=== PATIENT | female | born 1965 | race African-American/Black ===

== ENCOUNTER 2017-06-11 13:56 | Inpatient (IN) | payer OTHER ==
--- NOTE | 2017-06-11 14:29 | PDOC ---
History of Present Illness <Connor Flowers - Last Filed: 06/11/17 19:59> - General History Source: Patient Exam Limitations: No Limitations - History of Present Illness Initial Comments: This is a 51 YOF with h/o cerebellar CVA, HTN, HLD, seizures, asthma, nephrotic syndrome, MDD, PTSD, and MRDD who presents BIBA from her doctor's office c/o feeling that there is a lump in her chest, high blood pressure, and seizure. She states that her doctor witnessed her have a seizure in their office and also found her blood pressure to be high, so they called for an ambulance to take her to the ED. The patient notes having vomited 3-4 times today and also states that she has abdominal pain. She denies any current chest discomfort, stating that the sensation has since resolved. She notes having felt like this in the past during times of high stress. She additionally discloses that her stepmother two weeks ago and she recently returned to town from visiting her family. She also has broken up with her in the past few days. She has generally been extremely stressed with this, and is also stressed about the recovery process for her double knee replacement in February. Per EMS, the patient was picked up from her doctor's office where staff had called 911 because the patient complained of chest pain after being asked to leave the office for yelling and acting inappropriately. They report that her blood pressure was 168/70 and HR was 102 en route. She was initially very anxious but calmed down with conversation. <Carlie Barraza - Last Filed: 06/13/17 14:24> - General Chief Complaint: Psychiatric Stated Complaint: PANIC ATTACK Time Seen by Provider: 06/11/17 14:00 Past History <Connor Flowers - Last Filed: 06/11/17 19:59> <Carlie Barraza - Last Filed: 06/13/17 14:24> - Past Medical History Allergies/Adverse Reactions: Allergies Allergy/AdvReac Type Severity Reaction Status Date / Time No Known Allergies Allergy Verified 06/11/17 14:13 Home Medications: Ambulatory Orders Advair 500Mcg/50Mcg - 1 inh As needed PRN 06/12/17 Atorvastatin Calcium 40 mg PO DAILY 06/12/17 Clopidogrel Bisulfate [Plavix] 75 mg PO DAILY 06/12/17 Diphenhydramine HCl [Benadryl -] 25 mg PO DAILY 06/12/17 Hydrochlorothiazide 12.5 mg PO DAILY 06/12/17 Losartan Potassium 50 mg PO DAILY 06/12/17 Diltiazem HCl [Diltiazem 24Hr ER] 120 mg PO DAILY 06/13/17 Fluoxetine HCl 40 mg PO DAILY 06/13/17 Metoprolol Tartrate 25 mg PO 06/13/17 Review of Systems - Review of Systems Able to Perform ROS?: Yes Constitutional: No: Chills, Fever, Unexplained wgt Loss HEENTM: No: Nose Congestion, Throat Pain Respiratory: Yes: Shortness of Breath (chronic). No: Cough Cardiac (ROS): Yes: Chest Pain (resolved). No: Palpitations ABD/GI: Yes: Nausea, Vomiting. No: Constipated, Diarrhea : No: Burning, Dysuria Musculoskeletal: No: Back Pain, Neck Pain Integumentary: No: Bruising, Rash Neurological: No: Headache, Numbness, Tingling, Weakness, Dizziness Psychiatric: Yes: Anxiety, Depression, Frequent Crying, Stressors Endocrine: No: Unexplained Weight Gain, Unexplained Weight Loss <Barraza,Mary - Last Filed: 06/13/17 14:24> *Physical Exam - Vital Signs Last Vital Signs Temp Pulse Resp BP Pulse Ox 97.5 F L 60 20 130/86 100 06/11/17 14:13 06/11/17 16:39 06/11/17 16:39 06/11/17 16:39 06/11/17 16:39 <Connor Flowers - Last Filed: 06/11/17 19:59> - Physical Exam General Appearance: Yes: Nourished, Appropriately Dressed, Moderate Distress, Other (appears very anxious, tearful, often inappropriate answering, conversive but very tangential and very loose associations, tearful) HEENT: positive: EOMI, MELBA, Normal Voice, Hearing Grossly Normal. negative: Scleral Icterus (R), Scleral Icterus (L), Nasal Congestion Neck: positive: Trachea midline, Supple. negative: Tender, Rigid Respiratory/Chest: positive: Lungs Clear, Normal Breath Sounds. negative: Chest Tender, Respiratory Distress, Crackles, Rhonchi, Stridor, Wheezing Cardiovascular: positive: Regular Rhythm, Regular Rate. negative: Murmur Gastrointestinal/Abdominal: positive: Normal Bowel Sounds, Soft, Protuberent ( slightly). negative: Tender, Organomegaly, Pulsatile Mass, Guarding Musculoskeletal: positive: Normal Inspection. negative: Decreased Range of Motion, Vertebral Tenderness Extremity: positive: Normal Capillary Refill, Normal Inspection, Normal Range of Motion. negative: Tender, Cyanosis Integumentary: positive: Normal Color, Dry, Warm, Other (skin to bilateral upper arms and upper back with chronic small scars and occasional excoriations of varied ages). negative: Erythema, Rash, Bruising Neurologic: positive: aircraft instrument repairer II-XII NML intact, Fully Oriented, Alert, Normal Mood/ Affect, Normal Response, Motor Strength 5/5 <Carlie Barraza - Last Filed: 06/13/17 14:24> ED Treatment Course - LABORATORY CBC & Chemistry Diagram: 06/11/17 15:31 06/11/17 15:31 - ADDITIONAL ORDERS Additional order review: Laboratory Results 06/11/17 06/11/17 06/11/17 15:31 15:31 15:31 PT with INR INR Sodium Potassium Chloride Carbon Dioxide Anion Gap BUN Creatinine Creat Clearance w eGFR Random Glucose Calcium Phosphorus Cancelled Magnesium Total Bilirubin AST ALT Alkaline Phosphatase Ammonia 65.09 H Creatine Kinase Creatine Kinase Index CK-MB (CK-2) Troponin I Total Protein Albumin Salicylates < 4.0 Acetaminophen < 2.0 L Alcohol, Quantitative 334.5 H* 06/11/17 06/11/17 15:31 15:31 PT with INR 11.90 H INR 1.05 Sodium 142 Potassium 4.6 Chloride 108 H Carbon Dioxide 26 Anion Gap 8 BUN 17 Creatinine 0.8 Creat Clearance w eGFR > 60 Random Glucose 106 Calcium 8.7 Phosphorus 4.3 Magnesium 2.6 H Total Bilirubin 0.1 L AST 32 ALT 32 Alkaline Phosphatase 86 Ammonia Creatine Kinase 151 Creatine Kinase Index 0.6 CK-MB (CK-2) < 1.000 Troponin I < 0.02 Total Protein 8.0 Albumin 4.0 Salicylates Acetaminophen Alcohol, Quantitative 06/11/17 15:31 RBC 4.73 MCV 90.9 MCHC 32.6 RDW 16.7 H MPV 8.2 Neutrophils % No Result Required. Lymphocytes % No Result Required. - Medications Given in the ED: ED Medications Discontinued Medications Generic Name Dose Route Start Last Admin Trade Name Freq PRN Reason Stop Dose Admin Aspirin 162 mg 06/11/17 14:37 06/11/17 15:15 Asa - PO 06/11/17 14:38 162 mg ONCE ONE Administration Diphenhydramine HCl 25 mg 06/11/17 14:44 06/11/17 15:15 Benadryl Injection - IVPUSH 06/11/17 14:45 25 mg ONCE ONE Administration Haloperidol 5 mg 06/11/17 14:44 06/11/17 15:15 Haldol Injection (Fast Acting) - IM 06/11/17 14:45 5 mg ONCE ONE Administration Lorazepam 1 mg 06/11/17 14:36 06/11/17 15:15 Ativan - PO 06/11/17 14:37 1 mg ONCE ONE Administration <Connor Flwoers - Last Filed: 06/11/17 19:59> - LABORATORY CBC & Chemistry Diagram: 06/12/17 07:00 06/12/17 07:00 <Carlie Barraza - Last Filed: 06/13/17 14:24> Medical Decision Making - Medical Decision Making 51 YOF with h/o depression, PTSD, MRDD, cerebellar CVA, seizure d/o, HTN, HLD, asthma. Presents with anxiety, belligerent in doctor's office, states chest discomfort and had seizure in office. On exam her VS wnl, patient appears very anxious and is tearful, very tangential conversation. DDX IBNLT genet, anxiety/panic disorder, ACS, PNA, PE, etc. Ordered is CBCD, CMP, MG, Phos, urine tox, UA cx, serum salicylates/ acetaminophen/EtOH, EKG, CXR, CTH. Medications ordered are 1 Ativan IV, 5 Haldol IM, 25 Benadryl IV. Cannot find any anti-epileptic medications on her paper records or [facility] records. 06/11/17 16:[address] Florez who agrees with the medications given to the patient so far. He will kindly see the patient this evening when he comes by [facility]. Just after this phone conversation, the patient's ammonia results >65. 06/11/17 16:[address] Efe Gannon who is the patient's orthopedist. States that while in his office she had what appeared to be a panic attack. She was yelling, having difficulty walking, wobbly on her feet, belligerent and disturbing clinic. Patient's care signed out to oncoming team at the end of my shift awaiting psych consult and likely admission. <Carlie Barraza - Last Filed: 06/13/17 14:24> *DC/Admit/Observation/Transfer - Discharge Dispostion Admit: Yes <Connor Flowers - Last Filed: 06/11/17 19:59> <Carlie Barraza - Last Filed: 06/13/17 14:24> Diagnosis at time of Disposition: Hyperammonemia Altered mental status Qualifiers: Altered mental status type: delirium Qualified Code(s): R41.0 - Disorientation , unspecified - Discharge Dispostion Condition at time of disposition: Guarded
[2017-06-11] MEDS ORDERED: LORazepam 1 MG TABLET PO ONE (14:36)
[2017-06-11] MEDS ORDERED: ASPIRIN 81 MG CHEWABLE TABLETS PO ONE (14:37)
[2017-06-11] MEDS ORDERED: HALOPERIDOL LACTATE 5 MG/ML IM ONE (14:44)
[2017-06-11 14:46] VITALS: BMI 28.3
[2017-06-11] MEDS ORDERED: HALOPERIDOL LACTATE 5 MG/ML ONE (15:00)
[2017-06-11] MEDS ORDERED: ASPIRIN 81 MG CHEWABLE TABLETS ONE (15:00)
[2017-06-11] MEDS ORDERED: LORazepam 0.5 MG TABLET ONE (15:00)
--- NOTE | 2017-06-11 15:21 | PDOC ---
Attending Attestation - Resident Resident Name: Carlie Barraza - ED Attending Attestation I have performed the following: I have examined & evaluated the patient, The case was reviewed & discussed with the resident, I agree w/resident's findings & plan, Exceptions are as noted - HPI HPI: 06/11/17 15:20 51 year old female with past medical history of stroke, hypertension, hyperlipidemia, seizures, asthma, nephrotic syndrome, depressive disorder, PTSD brought in by EMS for multiple complaints. There was comforting reports and it was reported the patient may have been agitated and patient was directed other office. Outside the office, the patient reported that she had multiple complaints including seizures, chest pain, skin rash, multiple positive review systems. Patient here in the ED is intermittently cooperative and tangential when answering questions. She denies being homicidal or suicidal. She states that she takes her medications and gives us a list though does not remember the names on him. Patient states that she's had multiple months of symptoms including rash diffusely to her body which she has been scratching a since her knee surgery and February. Patient also reports that she need something warm for her skin. States she is having seizures even during our interview she is awake. 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 - Physicial Exam PE: 06/11/17 15:21 GENERAL: Awake, alert HEAD: No signs of trauma EYES: PERRLA, EOMI, sclera anicteric, conjunctiva clear ENT: Auricles normal inspection, hearing grossly normal, nares patent, NECK: Normal ROM, supple, LUNGS: Breath sounds equal, clear to auscultation bilaterally. No wheezes, and no crackles HEART: Regular rate and rhythm, normal S1 and S2, no murmurs, rubs or gallops ABDOMEN: Soft, nontender, normoactive bowel sounds. No guarding, no rebound. No masses EXTREMITIES: Normal range of motion, no edema. No clubbing or cyanosis. No cords, erythema, or tenderness NEUROLOGICAL: Cranial nerves II through XII grossly intact. Normal speech, normal gait SKIN: Warm, Dry, normal turgor, no rashes or lesions noted. PSYCH: agitated, tearful, screaming, crying, tangential - Medical Decision Making 06/11/17 15:20 Vital Signs Temp Pulse Resp BP Pulse Ox 97.5 F L 80 16 168/70 100 06/11/17 14:13 06/11/17 14:13 06/11/17 14:13 06/11/17 14:13 06/11/17 14:13 The patient here is tearful at times and yelling at other times. I suspect that there is psychiatric component to this, but will need to rule out an organic component. we will obtain a medical workup including head CT, labs including toxicological screens, urinalysis. We'll consult psychiatry and likely admit the patient to the hospital for further evaluation. 06/11/17 16:17 Pt was given haldol and ativan and benadryl given her agitated behavior for her safety. However, ECG was obtained once patient was calm and noted her QTC was [address] patient on cardiac telemetry and hold off on antipsychotics 06/11/17 16:45 CBC, BMP 06/11/17 15:31 CMP Phosphorus Cancelled 06/11/17 15:31 Ammonia 65.09 umol/L (11-32) H 06/11/17 15:[address] Barraza had consulted [employer] Gautam Vilchis CMP Sodium 146 mmol/L (136-145) H 06/12/17 07:00 Potassium 4.2 mmol/L (3.5-5.1) 06/12/17 07:00 Chloride 111 mmol/L (98-107) H 06/12/17 07:00 Carbon Dioxide 24 mmol/L (21-32) 06/12/17 07:00 Anion Gap 11 (8-16) 06/12/17 07:00 BUN 19 mg/dL (7-18) H 06/12/17 07:00 Creatinine 0.8 mg/dL (0.55-1.02) 06/12/17 07:00 Creat Clearance w eGFR > 60 (>60) 06/12/17 07:00 Random Glucose 102 mg/dL (74-106) 06/12/17 07:00 Calcium 8.1 mg/dL (8.5-10.1) L 06/12/17 07:00 Phosphorus 3.9 mg/dL (2.5-4.9) 06/12/17 07:00 Magnesium 2.2 mg/dL (1.8-2.4) 06/12/17 07:00 Total Bilirubin 0.2 mg/dL (0.2-1.0) D 06/12/17 07:00 AST 43 U/L (15-37) H D 06/12/17 07:00 ALT 35 U/L (12-78) 06/12/17 07:00 Alkaline Phosphatase 78 U/L (45-117) 06/12/17 07:00 Ammonia 65.09 umol/L (11-32) H 06/11/17 15:31 Creatine Kinase 151 IU/L (26-192) 06/11/17 15:31 Creatine Kinase Index 0.6 % (0.0-5.0) 06/11/17 15:31 CK-MB (CK-2) < 1.000 ng/mL (0.5-3.6) 06/11/17 15:31 Troponin I < 0.02 ng/ml (0.00-0.05) 06/11/17 15:31 Total Protein 7.0 g/dl (6.4-8.2) 06/12/17 07:00 Albumin 3.4 g/dl (3.4-5.0) 06/12/17 07:00 Elevated alcohol level Heart Score/ECG Review #1 ECG reviewed & interpreted by me at: 15:25 06/11/17 16:16 NSR 71, no std/agusto, TWI III, normal intervals, normal axis, QTC 497 msec
[2017-06-11 15:35] LABS: LYMPH # 3.5 (8-40); MCH 29.7 pg (25.7-33.7); MCHC 32.6 g/dl (32.0-36.0); MEAN CELL VOLUME 90.9 fl (80-96); MEAN PLT VOLUME 8.2 fl (7.5-11.1); MONO # 0.4 # (3.8-10.2); NEUT # 1.9 # (42.8-82.8); PLATELET COUNT 286 K/MM3 (134-434); RDW 16.7 % (11.6-15.6); WHITE BLOOD COUNT 5.8 K/mm3 (4.0-10.0)
[2017-06-11 15:51] LABS: INR 1.05 (0.82-1.09); PROTHROMBIN TIME (PATIENT) 11.9 SEC (9.98-11.88)
[2017-06-11 16:06] LABS: ANION GAP 8 (8-16); BILIRUBIN,TOTAL 0.1 mg/dL (0.2-1.0); CALCIUM 8.7 mg/dL (8.5-10.1); CO2 26 mmol/L (21-32); CREATININE 0.8 mg/dL (0.55-1.02); GLUCOSE,RANDOM 106 mg/dL (74-106); PHOSPHOROUS 4.3 mg/dL (2.5-4.9); SGPT/ALT 32 U/L (12-78)
[2017-06-11 16:09] LABS: ALK PHOS 86 U/L (45-117); CPK 151 IU/L (26-192); TROPONIN I < 0.02 ng/ml (0.00-0.05)
[2017-06-11 16:49] LABS: SALICYLATE < 4.0 mg/dl (0.0-30.0)
[2017-06-11 16:51] LABS: ALCOHOL 334.5 mg/dl (0-5)
[2017-06-11 16:52] LABS: MAGNESIUM 2.6 mg/dL (1.8-2.4); SGOT/AST 32 U/L (15-37)
[2017-06-11] MEDS ORDERED: FOLIC ACID INJECTION - 1 MG, THIAMINE HCL 100 MG, MULTIVIT INJECTION ADULT 10 ML in SOD... IVPB ONE (20:55)
[2017-06-11] MEDS ORDERED: LORazepam 2 MG/ML SDV VIAL IVPUSH PRN (20:57)
--- NOTE | 2017-06-11 21:01 | HP ---
CHIEF COMPLAINT: Alcohol intoxication. PCP:Macario Sanchez HISTORY OF PRESENT ILLNESS: Patient refused to speak with me therefore this history taken from ER documentation: 51 YO F with h/o cerebellar CVA, HTN, HLD, seizures, asthma, nephrotic syndrome, MDD, PTSD, and MRDD who presents BIBA from her doctor's office c/o feeling that there is a lump in her chest, high blood pressure, and seizure. She states that her doctor witnessed her have a seizure in their office and also found her blood pressure to be high, so they called for an ambulance to take her to the ED. The patient notes having vomited 3-4 times today and also states that she has abdominal pain. She denies any current chest discomfort, stating that the sensation has since resolved. She notes having felt like this in the past during times of high stress. She additionally discloses that her stepmother two weeks ago and she recently returned to town from visiting her family. She also has broken up with her in the past few days. She has generally been extremely stressed with this, and is also stressed about the recovery process for her double knee replacement in February. ER course was notable for: (1)ETOH 334 (2) 1 Ativan IV, 5 Haldol IM, 25 Benadryl IV. (3)EKG shows NSR with no st or t wave abnormalities.QTC was 497 msec. Recent Travel: none PAST MEDICAL HISTORY: PAST SURGICAL HISTORY: Social History: Smoking: Alcohol: Drugs: Family History: Allergies No Known Allergies Allergy (Verified 06/11/17 14:13) HOME MEDICATIONS: REVIEW OF SYSTEMS unable to obtain as patient refused to speak with me. PHYSICAL EXAMINATION Vital Signs - 24 hr 06/11/17 06/11/17 06/11/17 14:13 14:45 16:39 Temperature 97.5 F L Pulse Rate 80 Pulse Rate [ 60 Apical] Respiratory 16 20 Rate Blood Pressure 168/70 Blood Pressure 130/86 [Left Arm] O2 Sat by Pulse 100 100 100 Oximetry (%) GENERAL: sleeping and aggitated when awoken. HEAD: Normal with no signs of trauma. LUNGS:CTAB, NO wheezing or rhonchi HEART: RRR, [id number] normal ABDOMEN: soft, nt, nd, BS nomal LOWER EXTREMITIES: 2+ pulses, warm, well-perfused. No calf tenderness. No peripheral edema. PSYCHIATRIC:sleeping and aggitated upon wakening. Laboratory Results - last 24 hr 06/11/17 06/11/17 06/11/17 15:31 15:31 15:31 WBC 5.8 RBC 4.73 Hgb 14.0 Hct 43.1 MCV 90.9 MCH 29.7 MCHC 32.6 RDW 16.7 H Plt Count 286 MPV 8.2 Neutrophils % No Result Required. Lymphocytes % No Result Required. PT with INR 11.90 H INR 1.05 Sodium 142 Potassium 4.6 Chloride 108 H Carbon Dioxide 26 Anion Gap 8 BUN 17 Creatinine 0.8 Creat Clearance w eGFR > 60 Random Glucose 106 Calcium 8.7 Phosphorus 4.3 Magnesium 2.6 H Total Bilirubin 0.1 L AST 32 ALT 32 Alkaline Phosphatase 86 Ammonia Creatine Kinase 151 Creatine Kinase Index 0.6 CK-MB (CK-2) < 1.000 Troponin I < 0.02 Total Protein 8.0 Albumin 4.0 Salicylates Acetaminophen Alcohol, Quantitative 06/11/17 06/11/17 06/11/17 15:31 15:31 15:31 WBC RBC Hgb Hct MCV MCH MCHC RDW Plt Count MPV Neutrophils % Lymphocytes % PT with INR INR Sodium Potassium Chloride Carbon Dioxide Anion Gap BUN Creatinine Creat Clearance w eGFR Random Glucose Calcium Phosphorus Cancelled Magnesium Total Bilirubin AST ALT Alkaline Phosphatase Ammonia 65.09 H Creatine Kinase Creatine Kinase Index CK-MB (CK-2) Troponin I Total Protein Albumin Salicylates < 4.0 Acetaminophen < 2.0 L Alcohol, Quantitative 334.5 H* ASSESSMENT/PLAN: 51 yo F with h/o cerebellar CVA, HTN, HLD, seizures, asthma, nephrotic syndrome , MDD, PTSD, and MRDD placed on observation for acute alcohol intoxication. Problem List - Problem (1) Acute alcohol intoxication Assessment/Plan: Will place on observation for acute intoxication. * Will monitor for signs of withdrawal * IVF with Banana Bag x1 and then NS * Mulivatimin PO daily * Neuro checks Q4H to assess CIWA * check Mag and PHOs. * repeat AM labs. (2) Altered mental status (3) Hyperammonemia Assessment/Plan: IVF and repeat ammonia tomorrow. Visit type - Emergency Visit Emergency Visit: Yes ED Registration Date: 06/11/17 Care time: The patient presented to the Emergency Department on the above date and was hospitalized for further evaluation of their emergent condition. - New Patient This patient is new to me today: Yes Date on this admission: 06/12/17 - Critical Care Critical Care patient: No
[2017-06-11 23:32] LABS: TOTAL CELLS COUNTED 100
[2017-06-11 23:33] LABS: PLATELET ESTIMATE ADEQUATE
--- NOTE | 2017-06-12 01:42 | PN ---
Teaching Attending Note Name of Resident: Ivan Osullivan ATTENDING PHYSICIAN STATEMENT I saw and evaluated the patient. I reviewed the resident's note and discussed the case with the resident. I agree with the resident's findings and plan as documented. SUBJECTIVE: OBJECTIVE: ASSESSMENT AND PLAN: patient admitted for acute alcohol intoxication she stated she has no history of any acute alcohol withdrawal will place the patient on OBS to be re-evaluated tomorrow for possible d/c
[2017-06-12] MEDS: HEPARIN NA (PORCINE) 5,000 UNITS/ML 1ML VIAL SQ SCH ×3 (06:29→22:09)
[2017-06-12 07:30] LABS: BASO % 1.1 % (0-2.0); EOS % 0.8 % (0-4.5); LYMPH # 2.2 (8-40); MCH 29.4 pg (25.7-33.7); MCHC 32.3 g/dl (32.0-36.0); MEAN CELL VOLUME 91.1 fl (80-96); MONO # 0.4 # (3.8-10.2); NEUT # 1.7 # (42.8-82.8); NEUT % 38.1 % (42.8-82.8); PLATELET COUNT 253 K/MM3 (134-434); RDW 16.9 % (11.6-15.6); WHITE BLOOD COUNT 4.4 K/mm3 (4.0-10.0)
[2017-06-12 08:01] LABS: ALBUMIN 3.4 g/dl (3.4-5.0); ANION GAP 11 (8-16); BILIRUBIN,TOTAL 0.2 mg/dL (0.2-1.0); CALCIUM 8.1 mg/dL (8.5-10.1); CO2 24 mmol/L (21-32); CREATININE 0.8 mg/dL (0.55-1.02); GLUCOSE,RANDOM 102 mg/dL (74-106); MAGNESIUM 2.2 mg/dL (1.8-2.4); PHOSPHOROUS 3.9 mg/dL (2.5-4.9); SGOT/AST 43 U/L (15-37); SGPT/ALT 35 U/L (12-78)
[2017-06-12 08:02] LABS: ALK PHOS 78 U/L (45-117)
[2017-06-12] MEDS ORDERED: LACTULOSE 20 GM/30 ML UDC (FOR ORAL USE ONLY) PO PRN (09:28)
[2017-06-12] MEDS ORDERED: MULTIVITAMINS (DAILY MVI) TABLET (FP) PO SCH (10:00)
[2017-06-12] MEDS ORDERED: THIAMINE HCL 200 MG/2 ML VIAL IVPB SCH (10:00)
[2017-06-12 12:27] LABS: URINE MARIJUANA THC NEGATIVE ng/ml (CUTOFF=50)
[2017-06-12] MEDS ORDERED: ONDANSETRON 4 MG/2 ML VIAL IVPUSH PRN (12:35)
[2017-06-12] MEDS ORDERED: chlordiazePOXIDE HCL 25 MG CAPSULE PO PRN (12:36)
[2017-06-12] MEDS ORDERED: LORazepam 2 MG/ML SDV VIAL IVPUSH PRN (12:38)
[2017-06-12] MEDS: SODIUM CHLORIDE 0.45% 1,000 ML IV SCH (12:40)
[2017-06-12] MEDS: LACTULOSE 20 GM/30 ML UDC (FOR ORAL USE ONLY) PO SCH ×2 (14:56→22:09)
--- NOTE | 2017-06-12 16:17 | PN ---
Physical Exam: SUBJECTIVE: Patient seen and examined Patient is feeling better today. no acute distress, not confused at this time. Feel little weak. Uses cane to walk around. OBJECTIVE: Vital Signs Temperature 98.4 F 06/12/17 18:00 Pulse Rate 73 06/12/17 18:00 Respiratory Rate 20 06/12/17 18:00 Blood Pressure 147/87 06/12/17 18:00 O2 Sat by Pulse Oximetry (%) 98 06/12/17 13:00 GENERAL: The patient is awake, alert, and fully oriented, in no acute distress. HEAD: Normal with no signs of trauma. EYES: PERRL, extraocular movements intact, sclera anicteric, conjunctiva clear. ENT: Ears normal, oropharynx clear without exudates, moist mucous membranes. NECK: Trachea midline, full range of motion, supple. LUNGS: Breath sounds equal, clear to auscultation bilaterally, no wheezes, no crackles, no accessory muscle use. HEART: Regular rate and rhythm, S1, S2 without murmur, rub or gallop. ABDOMEN: Soft, nontender, nondistended, normoactive bowel sounds, no guarding, no rebound, no hepatosplenomegaly, no masses. EXTREMITIES: 2+ pulses, warm, well-perfused, no edema. NEUROLOGICAL: Cranial nerves II through XII grossly intact. Normal speech, gait not observed. PSYCH: Normal mood, normal affect. SKIN: Warm, dry, normal turgor, no rashes or lesions noted Laboratory Results - last 24 hr 06/11/17 06/11/17 06/11/17 15:31 15:31 15:31 WBC RBC Hgb Hct MCV MCH MCHC RDW Plt Count MPV Total Counted 100 Neutrophils % Neutrophils % (Manual) 28.0 L Lymphocytes % Lymphocytes % (Manual) 64.0 H Monocytes % Monocytes % (Manual) 7 Eosinophils % Eosinophils % (Manual) 1.0 Basophils % Platelet Estimate Adequate Sodium 142 Potassium 4.6 Chloride 108 H Carbon Dioxide 26 Anion Gap 8 BUN 17 Creatinine 0.8 Creat Clearance w eGFR > 60 Random Glucose 106 Calcium 8.7 Phosphorus 4.3 Magnesium 2.6 H Total Bilirubin 0.1 L AST 32 ALT 32 Alkaline Phosphatase 86 Creatine Kinase 151 Creatine Kinase Index 0.6 CK-MB (CK-2) < 1.000 Troponin I < 0.02 Total Protein 8.0 Albumin 4.0 Salicylates < 4.0 Opiates Screen Methadone Screen Acetaminophen < 2.0 L Barbiturate Screen Phencyclidine Screen Ur Amphetamines Screen MDMA (Ecstasy) Screen Benzodiazepines Screen Cocaine Screen U Marijuana (THC) Screen Alcohol, Quantitative 334.5 H* 06/12/17 06/12/17 06/12/17 06:39 07:00 07:00 WBC 4.4 RBC 4.54 Hgb 13.4 Hct 41.4 MCV 91.1 MCH 29.4 MCHC 32.3 RDW 16.9 H Plt Count 253 MPV 8.0 Total Counted Neutrophils % 38.1 L Neutrophils % (Manual) Lymphocytes % 50.7 H Lymphocytes % (Manual) Monocytes % 9.3 Monocytes % (Manual) Eosinophils % 0.8 Eosinophils % (Manual) Basophils % 1.1 Platelet Estimate Sodium 146 H Potassium 4.2 Chloride 111 H Carbon Dioxide 24 Anion Gap 11 BUN 19 H Creatinine 0.8 Creat Clearance w eGFR > 60 Random Glucose 102 Calcium 8.1 L Phosphorus 3.9 Magnesium 2.2 Total Bilirubin 0.2 D AST 43 H D ALT 35 Alkaline Phosphatase 78 Creatine Kinase Creatine Kinase Index CK-MB (CK-2) Troponin I Total Protein 7.0 Albumin 3.4 Salicylates Opiates Screen Negative Methadone Screen Negative Acetaminophen Barbiturate Screen Negative Phencyclidine Screen Negative Ur Amphetamines Screen Negative MDMA (Ecstasy) Screen Negative Benzodiazepines Screen Negative Cocaine Screen Negative U Marijuana (THC) Screen Negative Alcohol, Quantitative Active Medications Generic Name Dose Route Start Last Admin Trade Name Freq PRN Reason Stop Dose Admin Chlordiazepoxide HCl 50 mg 06/12/17 17:00 Librium - PO 06/13/17 11:01 [id number] FLORESITA Chlordiazepoxide HCl 25 mg 06/13/17 17:00 Librium - PO 06/14/17 11:01 [id number] FLORESITA Chlordiazepoxide HCl 15 mg 06/14/17 17:00 Librium - PO 06/15/17 11:01 [id number] FLORESITA Chlordiazepoxide HCl 25 mg 06/12/17 12:36 Librium - PO 06/15/17 12:35 Q4H PRN WITHDRAWAL(CONT SUBST) Heparin Sodium (Porcine) 5,000 unit 06/12/17 06:00 06/12/17 14:56 Heparin - SQ 5,000 unit TID FLORESITA Administration Sodium Chloride 1,000 mls @ 150 mls/hr 06/12/17 12:45 06/12/17 12:40 1/2 Normal Saline IV 150 mls/hr ASDIR FLORESITA Administration Lactulose 20 gm 06/12/17 14:00 06/12/17 14:56 Cephulac (Oral Use) PO 20 gm TID FLORESITA Administration Lorazepam 1 mg 06/12/17 12:38 Ativan Injection - IVPUSH Q6H PRN AGITATION Multivitamins/Minerals/Vitamin C 1 tab 06/12/17 10:00 06/12/17 14:56 Tab-A-Vit - PO 1 tab DAILY FLORESITA Administration Ondansetron HCl 4 mg 06/12/17 12:35 06/12/17 13:59 Zofran Injection IVPUSH 06/13/17 12:34 4 mg Q6H PRN Administration NAUSEA AND/OR VOMITING Thiamine HCl 200 mg 06/12/17 10:00 06/12/17 12:41 Vitamin B1 Injection - IVPB 200 mg DAILY FLORESITA Administration ASSESSMENT/PLAN: 51 yo F with h/o cerebellar CVA, HTN, HLD, seizures, asthma, nephrotic syndrome , MDD, PTSD, and MRDD, admitted for acute alcohol intoxication. # Acute alcohol intoxication on Librium protocol , thiamine, folic acid continue # Altered mental status due to elevated ammonia level, will repeat the level in am , added lactulose tid # Hyperammonemia on Lactulose, repeat level in am DVT Px: Lovenox 40mg sq Visit type - Emergency Visit Emergency Visit: Yes ED Registration Date: 06/12/17 Care time: The patient presented to the Emergency Department on the above date and was hospitalized for further evaluation of their emergent condition. - New Patient This patient is new to me today: Yes Date on this admission: 06/12/17 - Critical Care Critical Care patient: No - Discharge Referral Referred to [facility] No
--- NOTE | 2017-06-12 16:27 | EKG ---
Test Reason : Blood Pressure : / mmHG Vent. Rate : 071 BPM Atrial Rate : 071 BPM P-R Int : 182 ms QRS Dur : 090 ms QT Int : 458 ms P-R-T Axes : 039 -19 030 degrees QTc Int : 497 ms NORMAL SINUS RHYTHM WITH SINUS ARRHYTHMIA PROLONGED QT ABNORMAL ECG NO PREVIOUS ECGS AVAILABLE Confirmed by CHARLIE SCOTT MD ([id number]) on 06/12/2017 4:26:54 PM Referred By: Confirmed By:CHARLIE SCOTT MD
--- NOTE | 2017-06-12 16:55 | CONSULT ---
Consult Detox [facility] Reason for Current Admission/Consult: alcohol use disorder Referred by:: Messi Roque MD - History History of Present Illness: 51 yo f admitted w alcohol intoxication and encephalopathy, started on libirum detox now sittting comfortably in bed but poor historian. Reprots strong family hisoty of alcohol use, started drinking age 24 PMHX multiple medical comorbiditie in cluding seizures from stroke, reports partying too much recently - History Source History Provided By: Patient, Medical Record, Caregiver Limitations to Obtaining History: Poor Historian - Alcohol/Substance Use Hx Alcohol Use: Yes - Significant Medical Findings: 51 yo f admitted intoxicated and encephalopathic now completing libirum detox regimen appears comfortable, no distress noted. CIWA Score - CIWA Score Nausea/Vomitin-No Nausea/No Vomiting Muscle Tremors: None Anxiety: 0-No Anxiety, at Ease Agitation: 0-Normal Activity Paroxysmal Sweats: No Perspiration Orientation: 0-Oriented Tacttile Disturbances: 0-None Auditory Disturbances: 0-None Visual Disturbances: 0-None Headache: 0-None Present CIWA-Ar Total Score: 0 Assessment Plan - Diagnosis (1) Alcohol dependence with uncomplicated withdrawal Status: Acute (2) Nicotine dependence Status: Acute (3) Hepatic encephalopathy Status: Acute - Plan Plan: chart reveiwed, imaging reviewed, labs reviewed, patient history taken and examined, case discussed with physician - recommend complete libirum detox, patient may be tansferred to rehab at [facility] in am if she is in agreement and bed is available, appears to have other conflicting appointments. can follow up [facility] IF SHE DOES NTO WANT REHAB. Luda Lutz md [phone] - Medication Detox Regimen/Protocol: Librium
[2017-06-12] MEDS ORDERED: ZOLPIDEM TARTRATE 5 MG TABLET PO PRN (16:59)
[2017-06-12] MEDS ORDERED: ONDANSETRON *ODT* 4 MG TABLET SL PRN (16:59)
[2017-06-12] MEDS ORDERED: PT OWN MED DRAWER 7, Y5N ONE (17:36)
[2017-06-12] MEDS: chlordiazePOXIDE HCL 25 MG CAPSULE PO SCH ×2 (17:39→22:24)
[2017-06-12] MEDS: PRENATAL VITAMINS W/ FOLIC ACID TABLET (FP) PO SCH (22:09)
[2017-06-12] MEDS: THIAMINE HCL 100 MG TABLET (FP) PO SCH (22:09)
[2017-06-12] MEDS ORDERED: PATIENT'S OWN MEDICATION (NON-FORMULARY) (Hydrochlorothiazide [Hydrochlorothiazide] 12.5 M PO SCH (23:20)
[2017-06-13] MEDS: SODIUM CHLORIDE 0.45% 1,000 ML IV SCH ×2 (02:58→09:18)
[2017-06-13] MEDS: LACTULOSE 20 GM/30 ML UDC (FOR ORAL USE ONLY) PO SCH (05:30)
[2017-06-13] MEDS: HEPARIN NA (PORCINE) 5,000 UNITS/ML 1ML VIAL SQ SCH (05:30)
[2017-06-13] MEDS: chlordiazePOXIDE HCL 25 MG CAPSULE PO SCH ×4 (05:30→22:11)
[2017-06-13] MEDS ORDERED: PT OWN MED DRAWER 7, Y5N ONE (09:09)
[2017-06-13] MEDS: PRENATAL VITAMINS W/ FOLIC ACID TABLET (FP) PO SCH (09:17)
[2017-06-13] MEDS ORDERED: PATIENT'S OWN MEDICATION (NON-FORMULARY) (Hydrochlorothiazide [Hydrochlorothiazide] 12.5 M PO SCH (10:00)
[2017-06-13] MEDS ORDERED: HYDROCHLOROTHIAZIDE 12.5 MG CAPSULE (FP) PO SCH (10:00)
--- NOTE | 2017-06-13 11:10 | PN ---
Teaching Attending Note Name of Resident: Roxi Gonsales ATTENDING PHYSICIAN STATEMENT I saw and evaluated the patient. I reviewed the resident's note and discussed the case with the resident. I agree with the resident's findings and plan as documented. SUBJECTIVE: Patient is feeling better today. C/o having diarrhea and that's bc of using Lactulose. OBJECTIVE: Vital Signs Temperature 98.3 F 06/13/17 06:00 Pulse Rate 92 H 06/13/17 10:00 Respiratory Rate 18 06/13/17 10:00 Blood Pressure 136/88 06/13/17 10:00 O2 Sat by Pulse Oximetry (%) 97 06/12/17 21:00 CBCD WBC 4.4 K/mm3 (4.0-10.0) 06/12/17 07:00 RBC 4.54 M/mm3 (3.60-5.2) 06/12/17 07:00 Hgb 13.4 GM/dL (10.7-15.3) 06/12/17 07:00 Hct 41.4 % (32.4-45.2) 06/12/17 07:00 MCV 91.1 fl (80-96) 06/12/17 07:00 MCHC 32.3 g/dl (32.0-36.0) 06/12/17 07:00 RDW 16.9 % (11.6-15.6) H 06/12/17 07:00 Plt Count 253 K/MM3 (134-434) 06/12/17 07:00 MPV 8.0 fl (7.5-11.1) 06/12/17 07:00 CMP Sodium 146 mmol/L (136-145) H 06/12/17 07:00 Potassium 4.2 mmol/L (3.5-5.1) 06/12/17 07:00 Chloride 111 mmol/L (98-107) H 06/12/17 07:00 Carbon Dioxide 24 mmol/L (21-32) 06/12/17 07:00 Anion Gap 11 (8-16) 06/12/17 07:00 BUN 19 mg/dL (7-18) H 06/12/17 07:00 Creatinine 0.8 mg/dL (0.55-1.02) 06/12/17 07:00 Creat Clearance w eGFR > 60 (>60) 06/12/17 07:00 Random Glucose 102 mg/dL (74-106) 06/12/17 07:00 Calcium 8.1 mg/dL (8.5-10.1) L 06/12/17 07:00 Total Bilirubin 0.2 mg/dL (0.2-1.0) D 06/12/17 07:00 AST 43 U/L (15-37) H D 06/12/17 07:00 ALT 35 U/L (12-78) 06/12/17 07:00 Alkaline Phosphatase 78 U/L (45-117) 06/12/17 07:00 Total Protein 7.0 g/dl (6.4-8.2) 06/12/17 07:00 Albumin 3.4 g/dl (3.4-5.0) 06/12/17 07:00 CARDIAC ENZYMES Creatine Kinase 151 IU/L (26-192) 06/11/17 15:31 Troponin I < 0.02 ng/ml (0.00-0.05) 06/11/17 15:31 Home Medications Medication Instructions Recorded Advair 500Mcg/50Mcg - 1 inh As needed PRN 06/12/17 Atorvastatin Calcium 40 mg PO DAILY 06/12/17 Clopidogrel Bisulfate [Plavix] 75 mg PO DAILY 06/12/17 Diphenhydramine HCl [Benadryl -] 25 mg PO DAILY 06/12/17 Famotidine [Pepcid] 20 mg PO DAILY 06/12/17 Hydrochlorothiazide 12.5 mg PO DAILY 06/12/17 Losartan Potassium 50 mg PO DAILY 06/12/17 Metoprolol Tartrate 25 mg PO DAILY 06/12/17 Sertraline HCl [Zoloft -] 50 mg PO DAILY 06/12/17 PE: per resident's note no tremors, cn 2-12 grossly intact. Laboratory Tests 06/11/17 06/13/17 15:31 08:00 Ammonia 65.09 H 44.68 H Current Medications Generic Name Dose Route Start Last Admin Trade Name Freq PRN Reason Stop Dose Admin Chlordiazepoxide HCl 25 mg 06/13/17 17:00 Librium - PO 06/14/17 11:01 [id number] [facility] Chlordiazepoxide HCl 15 mg 06/14/17 17:00 Librium - PO 06/15/17 11:01 [id number] [facility] Chlordiazepoxide HCl 25 mg 06/12/17 12:36 Librium - PO 06/15/17 12:35 Q4H PRN WITHDRAWAL(CONT SUBST) Clopidogrel Bisulfate 75 mg 06/13/17 11:30 Plavix - PO DAILY [facility] Enoxaparin Sodium 40 mg 06/14/17 10:00 Lovenox - SQ DAILY [facility] Dextrose/Sodium Chloride 1,000 mls @ 150 mls/hr 06/13/17 11:15 D5-1/2ns - IV ASDIR [facility] Lactulose 20 gm 06/14/17 10:00 Cephulac (Oral Use) PO DAILY [facility] Lorazepam 1 mg 06/12/17 12:38 Ativan Injection - IVPUSH Q6H PRN AGITATION Losartan Potassium 50 mg 06/14/17 10:00 Cozaar - PO DAILY [facility] Metoprolol Tartrate 25 mg 06/14/17 10:00 Lopressor - PO DAILY [facility] Ondansetron HCl 8 mg 06/12/17 16:59 Zofran Odt - SL Q6H PRN NAUSEA AND/OR VOMITING Multivit/Folic Acid/Iron 1 tab 06/12/17 17:00 06/13/17 09:17 Vitamins (Sjr) - PO 1 tab DAILY [facility] Administration Thiamine HCl 100 mg 06/12/17 22:00 06/12/17 22:09 Vitamin B1 - PO 100 mg HS [facility] Administration Zolpidem Tartrate 10 mg 06/12/17 16:59 Ambien - PO HS PRN INSOMNIA ASSESSMENT AND PLAN: 51 yo F with h/o cerebellar CVA, HTN, HLD, seizures, asthma, nephrotic syndrome , MDD, PTSD, and MRDD, admitted for acute alcohol intoxication. # Acute alcohol intoxication on Librium protocol continue , thiamine, folic acid continue # Altered mental status due to elevated ammonia level 65.09-->44.68 today will repeat the level in am ,reduced lactulose daily now # Hyperammonemia on Lactulose ,will repeat the level in am # Acute hypernatremia will continue IVF with d51/2NS most likely due to diarrhea DVT Px: Lovenox 40mg sq
--- NOTE | 2017-06-13 11:56 | PN ---
Physical Exam: SUBJECTIVE: Patient seen and examined OBJECTIVE: Vital Signs Period Temp Pulse Resp BP Sys/Mckeon Pulse Ox Last 24 Hr 97.8 F-99 F 60-92 18-20 134-154/79-98 97-98 GENERAL: The patient is awake, alert, and fully oriented, in no acute distress. HEAD: Normal with no signs of trauma. EYES: PERRL, extraocular movements intact, sclera anicteric, conjunctiva clear. No ptosis. ENT: Ears normal, nares patent, oropharynx clear without exudates, moist mucous membranes. NECK: Trachea midline, full range of motion, supple. LUNGS: Breath sounds equal, clear to auscultation bilaterally, no wheezes, no crackles, no accessory muscle use. HEART: Regular rate and rhythm, S1, S2 without murmur, rub or gallop. ABDOMEN: Soft, nontender, nondistended, normoactive bowel sounds, no guarding, no rebound, no hepatosplenomegaly, no masses. EXTREMITIES: 2+ pulses, warm, well-perfused, no edema. NEUROLOGICAL: Cranial nerves II through XII grossly intact. Normal speech, gait not observed. PSYCH: Normal mood, normal affect. SKIN: Warm, dry, normal turgor, no rashes or lesions noted CBC, BMP 06/12/17 07:00 06/12/17 07:00 Hepatic Panel Total Bilirubin 0.2 mg/dL (0.2-1.0) D 06/12/17 07:00 AST 43 U/L (15-37) H D 06/12/17 07:00 ALT 35 U/L (12-78) 06/12/17 07:00 Alkaline Phosphatase 78 U/L (45-117) 06/12/17 07:00 Albumin 3.4 g/dl (3.4-5.0) 06/12/17 07:00 06/12/17 06/13/17 06:39 08:00 Ammonia 44.68 H Opiates Screen Negative Methadone Screen Negative Barbiturate Screen Negative Phencyclidine Screen Negative Ur Amphetamines Screen Negative MDMA (Ecstasy) Screen Negative Benzodiazepines Screen Negative Cocaine Screen Negative U Marijuana (THC) Screen Negative Active Medications Atorvastatin Calcium (Lipitor -) 40 mg PO DAILY [facility] Chlordiazepoxide HCl (Librium -) 25 mg PO [id number] [facility] Stop: 06/14/17 11:01 Chlordiazepoxide HCl (Librium -) 15 mg PO [id number] [facility] Stop: 06/15/17 11:01 Chlordiazepoxide HCl (Librium -) 25 mg PO Q4H PRN PRN Reason: WITHDRAWAL(CONT SUBST) Stop: 06/15/17 12:35 Clopidogrel Bisulfate (Plavix -) 75 mg PO DAILY [facility] Diltiazem HCl (Cardizem Cd -) 120 mg PO DAILY [facility] Enoxaparin Sodium (Lovenox -) 40 mg SQ DAILY [facility] Dextrose/Sodium Chloride (D5-1/2ns -) 1,000 mls @ 150 mls/hr IV ASDIR [facility] Lactulose (Cephulac (Oral Use)) 20 gm PO DAILY [facility] Lorazepam (Ativan Injection -) 1 mg IVPUSH Q6H PRN PRN Reason: AGITATION Losartan Potassium (Cozaar -) 50 mg PO DAILY [facility] Non-Formulary Medication (Fluoxetine Hcl [Fluoxetine Hcl]) 40 mg PO DAILY [facility] Multivit/Folic Acid/Iron ( Vitamins (Sjr) -) 1 tab PO DAILY [facility] Last Admin: 06/13/17 09:17 Dose: 1 tab Thiamine HCl (Vitamin B1 -) 100 mg PO HS [facility] Last Admin: 06/12/17 22:09 Dose: 100 mg Zolpidem Tartrate (Ambien -) 10 mg PO HS PRN PRN Reason: INSOMNIA ASSESSMENT/PLAN: 51 yo F with PMH of cerebellar CVA, HTN, HLD, seizures, asthma, nephrotic syndrome, MDD, PTSD, and MRDD who is admitted for EtOH detox. #EtOH detox -Dr. Cruz consulted. -Librium protocol, day 2 -Ativan 1mg q6H PRN for agitation -Ambien 10mg HS PRN for insomnia -Zofran q6h PRN for nausea -Thiamine, folic acid, MVI #Hyperammonemia, improving -lactulose 20mg TID --> reduced to daily due to diarrhea #?Afib -Diltiazem #HTN -Hold HCTZ 12.5mg PO -Continue Losartan #HLD -cont Lipitor #CVA- Plavix #Anxiety/depression - cont Fluoxetine #FEN: PO hydration/ lytes wnl/ Na controlled diet #DVT PPX - Lovenox 40mg SQ daily #Dispo: likely discharge after detox FULL Code d/w Dr. Jeff Gonsales MD PGY1- Internal Medicine Visit type - Emergency Visit Emergency Visit: No - New Patient This patient is new to me today: Yes Date on this admission: 06/13/17 - Critical Care Critical Care patient: No
[2017-06-13] MEDS ORDERED: ATORVASTATIN CA 40 MG TABLET (FP) PO SCH (12:00)
[2017-06-13] MEDS ORDERED: PATIENT'S OWN MEDICATION (NON-FORMULARY) (Fluoxetine Hcl [Fluoxetine Hcl] 40 MG) PO SCH (12:00)
[2017-06-13] MEDS: CLOPIDOGREL BISULFATE 75 MG TABLET (FP) PO SCH (12:24)
[2017-06-13] MEDS: DEXTROSE 5%-0.45% SALINE 1,000 ML IV SCH ×2 (12:39→20:33)
[2017-06-13] MEDS: FLUoxetine HCL 20 MG CAPSULE (FP) PO SCH (12:55)
[2017-06-13] MEDS: METOPROLOL TARTRATE 25 MG TABLET (FP) PO SCH (12:55)
[2017-06-13] MEDS: THIAMINE HCL 100 MG TABLET (FP) PO SCH (22:11)
[2017-06-14] MEDS: DEXTROSE 5%-0.45% SALINE 1,000 ML IV SCH ×2 (03:33→10:50)
[2017-06-14] MEDS: chlordiazePOXIDE HCL 25 MG CAPSULE PO SCH ×2 (05:52→10:50)
[2017-06-14 07:13] LABS: MCH 29.4 pg (25.7-33.7); MCHC 32.7 g/dl (32.0-36.0); MEAN CELL VOLUME 89.7 fl (80-96); MEAN PLT VOLUME 8.4 fl (7.5-11.1); PLATELET COUNT 217 K/MM3 (134-434); RDW 15.9 % (11.6-15.6); WHITE BLOOD COUNT 3.6 K/mm3 (4.0-10.0)
[2017-06-14 07:37] LABS: ALBUMIN 3.3 g/dl (3.4-5.0); ALK PHOS 83 U/L (45-117); ANION GAP 10 (8-16); BILIRUBIN,TOTAL 0.6 mg/dL (0.2-1.0); CALCIUM 8.6 mg/dL (8.5-10.1); CO2 25 mmol/L (21-32); CREATININE 0.8 mg/dL (0.55-1.02); GLUCOSE,RANDOM 130 mg/dL (74-106); SGOT/AST 21 U/L (15-37); SGPT/ALT 31 U/L (12-78); TOT PROT 6.7 g/dl (6.4-8.2)
[2017-06-14] MEDS: ENOXAPARIN NA (PORCINE) 40 MG/0.4 ML DISP.SYRIN SQ SCH (09:55)
[2017-06-14] MEDS: LACTULOSE 20 GM/30 ML UDC (FOR ORAL USE ONLY) PO SCH (09:55)
[2017-06-14] MEDS: PRENATAL VITAMINS W/ FOLIC ACID TABLET (FP) PO SCH (09:55)
[2017-06-14] MEDS: METOPROLOL TARTRATE 25 MG TABLET (FP) PO SCH (09:56)
[2017-06-14] MEDS: CLOPIDOGREL BISULFATE 75 MG TABLET (FP) PO SCH (09:56)
[2017-06-14] MEDS: LOSARTAN POTASSIUM 50 MG TABLET (FP) PO SCH (09:56)
[2017-06-14] MEDS: FLUoxetine HCL 20 MG CAPSULE (FP) PO SCH (09:56)
[2017-06-14] MEDS ORDERED: METOPROLOL TARTRATE 25 MG TABLET (FP) PO SCH (10:00)
--- NOTE | 2017-06-14 15:11 | PN ---
Progress Note (short form) - Note Progress Note: Patient is comfortable with no acute distress, no shortness of breath, no nausea or vomiting. no headache. Vital Signs Temperature 98.4 F 06/14/17 14:58 Pulse Rate 66 06/14/17 14:58 Respiratory Rate 18 06/14/17 14:58 Blood Pressure 129/67 06/14/17 14:58 O2 Sat by Pulse Oximetry (%) 98 06/14/17 09:00 GENERAL: The patient is awake, alert, and fully oriented, in no acute distress. HEAD: Normal with no signs of trauma. EYES: PERRL, extraocular movements intact, sclera anicteric, conjunctiva clear. ENT: Ears normal, oropharynx clear without exudates, moist mucous membranes. NECK: Trachea midline, full range of motion, supple. LUNGS: Breath sounds equal, clear to auscultation bilaterally, no wheezes, no crackles, no accessory muscle use. HEART: Regular rate and rhythm, S1, S2 positive , no rub or gallop. ABDOMEN: Soft, nontender, nondistended, normoactive bowel sounds, no guarding, no rebound, no hepatosplenomegaly, no masses are appreciated. EXTREMITIES: 2+ pulses, warm, well-perfused, no edema. NEUROLOGICAL: Cranial nerves II through XII grossly intact. Normal speech, gait is stable. PSYCH: Normal mood, normal affect. SKIN: Warm, dry, normal turgor, no rashes or lesions noted CBCD WBC 3.6 K/mm3 (4.0-10.0) L 06/14/17 06:25 RBC 4.55 M/mm3 (3.60-5.2) 06/14/17 06:25 Hgb 13.4 GM/dL (10.7-15.3) 06/14/17 06:25 Hct 40.8 % (32.4-45.2) 06/14/17 06:25 MCV 89.7 fl (80-96) 06/14/17 06:25 MCHC 32.7 g/dl (32.0-36.0) 06/14/17 06:25 RDW 15.9 % (11.6-15.6) H 06/14/17 06:25 Plt Count 217 K/MM3 (134-434) 06/14/17 06:25 MPV 8.4 fl (7.5-11.1) 06/14/17 06:25 CMP Sodium 139 mmol/L (136-145) 06/14/17 06:25 Potassium 3.8 mmol/L (3.5-5.1) 06/14/17 06:25 Chloride 104 mmol/L (98-107) 06/14/17 06:25 Carbon Dioxide 25 mmol/L (21-32) 06/14/17 06:25 Anion Gap 10 (8-16) 06/14/17 06:25 BUN 8 mg/dL (7-18) D 06/14/17 06:25 Creatinine 0.8 mg/dL (0.55-1.02) 06/14/17 06:25 Creat Clearance w eGFR > 60 (>60) 06/14/17 06:25 Random Glucose 130 mg/dL (74-106) H D 06/14/17 06:25 Calcium 8.6 mg/dL (8.5-10.1) 06/14/17 06:25 Total Bilirubin 0.6 mg/dL (0.2-1.0) D 06/14/17 06:25 AST 21 U/L (15-37) D 06/14/17 06:25 ALT 31 U/L (12-78) 06/14/17 06:25 Alkaline Phosphatase 83 U/L (45-117) 06/14/17 06:25 Total Protein 6.7 g/dl (6.4-8.2) 06/14/17 06:25 Albumin 3.3 g/dl (3.4-5.0) L 06/14/17 06:25 CARDIAC ENZYMES Creatine Kinase 151 IU/L (26-192) 06/11/17 15:31 Troponin I < 0.02 ng/ml (0.00-0.05) 06/11/17 15:31 Current Medications Generic Name Dose Route Start Last Admin Trade Name Freq PRN Reason Stop Dose Admin Atorvastatin Calcium 40 mg 06/14/17 22:00 Lipitor - PO DAILY@2200 [facility] Chlordiazepoxide HCl 15 mg 06/14/17 17:00 Librium - PO 06/15/17 11:01 [id number] [facility] Chlordiazepoxide HCl 25 mg 06/12/17 12:36 Librium - PO 06/15/17 12:35 Q4H PRN WITHDRAWAL(CONT SUBST) Clopidogrel Bisulfate 75 mg 06/13/17 11:30 06/14/17 09:56 Plavix - PO 75 mg DAILY [facility] Administration Diltiazem HCl 120 mg 06/13/17 12:00 06/14/17 09:56 Cardizem Cd - PO 120 mg DAILY [facility] Administration Enoxaparin Sodium 40 mg 06/14/17 10:00 06/14/17 09:55 Lovenox - SQ 40 mg DAILY [facility] Administration Fluoxetine HCl 40 mg 06/13/17 12:45 06/14/17 09:56 Prozac - PO 40 mg DAILY [facility] Administration Dextrose/Sodium Chloride 1,000 mls @ 150 mls/hr 06/13/17 11:15 06/14/17 10:50 D5-1/2ns - IV 150 mls/hr ASDIR [facility] Administration Lactulose 20 gm 06/14/17 10:00 06/14/17 09:55 Cephulac (Oral Use) PO 20 gm DAILY [facility] Administration Lorazepam 1 mg 06/12/17 12:38 Ativan Injection - IVPUSH Q6H PRN AGITATION Losartan Potassium 50 mg 06/14/17 10:00 06/14/17 09:56 Cozaar - PO 50 mg DAILY [facility] Administration Metoprolol Tartrate 25 mg 06/13/17 12:45 06/14/17 09:56 Lopressor - PO 25 mg DAILY [facility] Administration Multivit/Folic Acid/Iron 1 tab 06/12/17 17:00 06/14/17 09:55 Vitamins (Sjr) - PO 1 tab DAILY [facility] Administration Thiamine HCl 100 mg 06/12/17 22:00 06/13/17 22:11 Vitamin B1 - PO 100 mg HS [facility] Administration Zolpidem Tartrate 10 mg 06/12/17 16:59 Ambien - PO HS PRN INSOMNIA Home Medications Medication Instructions Recorded Advair 500Mcg/50Mcg - 1 inh As needed PRN 06/12/17 Atorvastatin Calcium 40 mg PO DAILY 06/12/17 Clopidogrel Bisulfate [Plavix] 75 mg PO DAILY 06/12/17 Diphenhydramine HCl [Benadryl -] 25 mg PO DAILY 06/12/17 Hydrochlorothiazide 12.5 mg PO DAILY 06/12/17 Losartan Potassium 50 mg PO DAILY 06/12/17 Diltiazem HCl [Diltiazem 24Hr ER] 120 mg PO DAILY 06/13/17 Fluoxetine HCl 40 mg PO DAILY 06/13/17 Metoprolol Tartrate 25 mg PO 06/13/17 ASSESSMENT AND PLAN: 51 yo F with h/o cerebellar CVA, HTN, HLD, seizures, asthma, nephrotic syndrome , MDD, PTSD, and MRDD, admitted for acute alcohol intoxication. # Acute alcohol intoxication continue Librium protocol , tomorrow is the last day. continue , thiamine, folic acid continue. one more day of librium then can be discharged home. # Altered mental status due to elevated ammonia level 65.09-->44.68-->41.7 today will repeat the level in am , continue lactulose po daily now # Hyperammonemia on Lactulose resolving # Acute hypernatremia , sodium level improved to 146--->139 today s/p IVF with d51/2NS most likely due to diarrhea. improved. DVT Px: Lovenox 40mg sq Visit type - Emergency Visit Emergency Visit: Yes ED Registration Date: 06/12/17 Care time: The patient presented to the Emergency Department on the above date and was hospitalized for further evaluation of their emergent condition. - New Patient This patient is new to me today: No - Critical Care Critical Care patient: No - Discharge Referral Referred to [facility] Med P.C.: No
[2017-06-14] MEDS: chlordiazePOXIDE 5 MG CAPSULE PO SCH ×2 (17:48→22:09)
[2017-06-14] MEDS ORDERED: ATORVASTATIN CA 40 MG TABLET (FP) PO SCH (22:00)
[2017-06-14] MEDS: THIAMINE HCL 100 MG TABLET (FP) PO SCH (22:09)
[2017-06-15] MEDS: chlordiazePOXIDE 5 MG CAPSULE PO SCH (05:36)
[2017-06-15 09:03] VITALS: BP 133/71; PULSE 81; TEMP 97.7
[2017-06-15] MEDS ORDERED: PT OWN MED DRAWER 7, Y5N ONE (09:14)
[2017-06-15] MEDS: LACTULOSE 20 GM/30 ML UDC (FOR ORAL USE ONLY) PO SCH (09:18)
[2017-06-15] MEDS: FLUoxetine HCL 20 MG CAPSULE (FP) PO SCH (09:19)
[2017-06-15] MEDS: METOPROLOL TARTRATE 25 MG TABLET (FP) PO SCH (09:19)
[2017-06-15] MEDS: CLOPIDOGREL BISULFATE 75 MG TABLET (FP) PO SCH (09:19)
[2017-06-15] MEDS: ENOXAPARIN NA (PORCINE) 40 MG/0.4 ML DISP.SYRIN SQ SCH (09:19)
[2017-06-15] MEDS: PRENATAL VITAMINS W/ FOLIC ACID TABLET (FP) PO SCH (09:19)
[2017-06-15] MEDS: LOSARTAN POTASSIUM 50 MG TABLET (FP) PO SCH (09:20)
--- NOTE | 2017-06-15 09:34 | PN ---
Teaching Attending Note Name of Resident: Roxi Gonsales ATTENDING PHYSICIAN STATEMENT I saw and evaluated the patient. I reviewed the resident's note and discussed the case with the resident. I agree with the resident's findings and plan as documented. SUBJECTIVE: Patient is comfortable with no acute distress. OBJECTIVE: Vital Signs Temperature 97.7 F 06/15/17 09:02 Pulse Rate 81 06/15/17 09:02 Respiratory Rate 24 06/15/17 09:02 Blood Pressure 133/71 06/15/17 09:02 O2 Sat by Pulse Oximetry (%) 98 06/14/17 21:00 CBCD WBC 3.6 K/mm3 (4.0-10.0) L 06/14/17 06:25 RBC 4.55 M/mm3 (3.60-5.2) 06/14/17 06:25 Hgb 13.4 GM/dL (10.7-15.3) 06/14/17 06:25 Hct 40.8 % (32.4-45.2) 06/14/17 06:25 MCV 89.7 fl (80-96) 06/14/17 06:25 MCHC 32.7 g/dl (32.0-36.0) 06/14/17 06:25 RDW 15.9 % (11.6-15.6) H 06/14/17 06:25 Plt Count 217 K/MM3 (134-434) 06/14/17 06:25 MPV 8.4 fl (7.5-11.1) 06/14/17 06:25 CMP Sodium 139 mmol/L (136-145) 06/14/17 06:25 Potassium 3.8 mmol/L (3.5-5.1) 06/14/17 06:25 Chloride 104 mmol/L (98-107) 06/14/17 06:25 Carbon Dioxide 25 mmol/L (21-32) 06/14/17 06:25 Anion Gap 10 (8-16) 06/14/17 06:25 BUN 8 mg/dL (7-18) D 06/14/17 06:25 Creatinine 0.8 mg/dL (0.55-1.02) 06/14/17 06:25 Creat Clearance w eGFR > 60 (>60) 06/14/17 06:25 Random Glucose 130 mg/dL (74-106) H D 06/14/17 06:25 Calcium 8.6 mg/dL (8.5-10.1) 06/14/17 06:25 Total Bilirubin 0.6 mg/dL (0.2-1.0) D 06/14/17 06:25 AST 21 U/L (15-37) D 06/14/17 06:25 ALT 31 U/L (12-78) 06/14/17 06:25 Alkaline Phosphatase 83 U/L (45-117) 06/14/17 06:25 Total Protein 6.7 g/dl (6.4-8.2) 06/14/17 06:25 Albumin 3.3 g/dl (3.4-5.0) L 06/14/17 06:25 CARDIAC ENZYMES Creatine Kinase 151 IU/L (26-192) 06/11/17 15:31 Troponin I < 0.02 ng/ml (0.00-0.05) 06/11/17 15:31 Current Medications Generic Name Dose Route Start Last Admin Trade Name Freq PRN Reason Stop Dose Admin Atorvastatin Calcium 40 mg 06/14/17 22:00 06/14/17 22:09 Lipitor - PO 40 mg DAILY@2200 [facility] Administration Chlordiazepoxide HCl 15 mg 06/14/17 17:00 06/15/17 05:36 Librium - PO 06/15/17 11:01 15 mg [id number] [facility] Administration Chlordiazepoxide HCl 25 mg 06/12/17 12:36 Librium - PO 06/15/17 12:35 Q4H PRN WITHDRAWAL(CONT SUBST) Clopidogrel Bisulfate 75 mg 06/13/17 11:30 06/15/17 09:19 Plavix - PO 75 mg DAILY [facility] Administration Diltiazem HCl 120 mg 06/13/17 12:00 06/15/17 09:19 Cardizem Cd - PO 120 mg DAILY [facility] Administration Enoxaparin Sodium 40 mg 06/14/17 10:00 06/15/17 09:19 Lovenox - SQ 40 mg DAILY [facility] Administration Fluoxetine HCl 40 mg 06/13/17 12:45 06/15/17 09:19 Prozac - PO 40 mg DAILY [facility] Administration Lactulose 20 gm 06/14/17 10:00 06/14/17 09:55 Cephulac (Oral Use) PO 20 gm DAILY [facility] Administration Lorazepam 1 mg 06/12/17 12:38 Ativan Injection - IVPUSH Q6H PRN AGITATION Losartan Potassium 50 mg 06/14/17 10:00 06/15/17 09:20 Cozaar - PO 50 mg DAILY [facility] Administration Metoprolol Tartrate 25 mg 06/13/17 12:45 06/15/17 09:19 Lopressor - PO 25 mg DAILY [facility] Administration Multivit/Folic Acid/Iron 1 tab 06/12/17 17:00 06/15/17 09:19 Vitamins (Sjr) - PO 1 tab DAILY [facility] Administration Thiamine HCl 100 mg 06/12/17 22:00 06/14/17 22:09 Vitamin B1 - PO 100 mg HS [facility] Administration Zolpidem Tartrate 10 mg 06/12/17 16:59 Ambien - PO HS PRN INSOMNIA Home Medications Medication Instructions Recorded Advair 500Mcg/50Mcg - 1 inh As needed PRN 06/12/17 Atorvastatin Calcium 40 mg PO DAILY 06/12/17 Clopidogrel Bisulfate [Plavix] 75 mg PO DAILY 06/12/17 Diphenhydramine HCl [Benadryl -] 25 mg PO DAILY 06/12/17 Hydrochlorothiazide 12.5 mg PO DAILY 06/12/17 Losartan Potassium 50 mg PO DAILY 06/12/17 Diltiazem HCl [Diltiazem 24Hr ER] 120 mg PO DAILY 06/13/17 Fluoxetine HCl 40 mg PO DAILY 06/13/17 Metoprolol Tartrate 25 mg PO 06/13/17 PE: comfortable no acute distress rest of PE per resident's note ASSESSMENT AND PLAN: 51 yo F with h/o cerebellar CVA, HTN, HLD, seizures, asthma, nephrotic syndrome , MDD, PTSD, and MRDD, admitted for acute alcohol intoxication. # Acute alcohol intoxication completed Librium protocol continue thiamine and suggested to use b-complex vit. # Altered mental status due to elevated ammonia level 65.09-->44.68-->41.7 improved # Hyperammonemia on Lactulose resolved. # Acute hypernatremia , sodium level improved to 146--->139 today s/p IVF with d51/2NS most likely due to diarrhea. improved. will discharge patient now.
--- NOTE | 2017-06-15 09:45 | DS ---
Physical Exam: SUBJECTIVE: Patient seen and examined. Offers no complaints. Denies chest pain, abdominal pain, n/v, fever, or chills. OBJECTIVE: Vital Signs Period Temp Pulse Resp BP Sys/Mckeon Pulse Ox Last 24 Hr 97.7 F-98.4 F 65-81 18-24 127-142/63-93 98 PHYSICAL EXAM GENERAL: The patient is awake, alert, and fully oriented, in no acute distress. EYES: sclera anicteric, conjunctiva clear. ENT: oropharynx clear without exudates, moist mucous membranes. LUNGS: CTAB HEART: rrr ABDOMEN: Soft, ntnd LOWER EXTREMITIES: 2+ DP pulses, wwp, no edema HOSPITAL COURSE: Date of Admission:06/12/17 Date of Discharge: 06/15/17 Pre-hospital course: 51yo woman with PMH of cerebellar CVA, HTN, HLD, seizures, asthma, nephrotic syndrome, MDD, PTSD, and MRDD who BIBA from her PCP c/o feeling that there is a lump in her chest, high blood pressure, and seizure. She states that her doctor witnessed her have a seizure in their office and also found her blood pressure to be high so they called for an ambulance to take her to the ED. The patient notes having vomited 3-4 times today and also states that she has abdominal pain. She denies any current chest discomfort, stating that the sensation has since resolved. She notes having felt like this in the past during times of high stress. She additionally discloses that her stepmother two weeks ago and she recently returned to town from visiting her family. She also has broken up with her in the past few days. ER course was notable for: (1)ETOH 334 (2) 1 Ativan IV, 5 Haldol IM, 25 Benadryl IV. (3)EKG shows NSR with no st or t wave abnormalities.QTC was 497 msec. Subsequent hospital course: Patient was admitted for acute EtOH intoxication. She was detoxed with a Librium taper. Addiction medicine (Dr. Cruz) was consulted. Patient was noted to have elevated ammonia levels and confusion, which both resolved after lactulose treatment. Head CT confirmed no acute pathology. She was given thiamine and MVI during admission, and was recommended to continuing taking B complex vitamins after discharge. She was given information for out-patient rehab at [facility]. Imaging: Noncon Head CT 06/11/17. Indication: Altered mental status. Comparison: None available. Findings: There is evidence of acute intracranial hemorrhage. There is no focal extra- axial collection. No definite mass effects. No midline shift or hydrocephalus. There is generalized, age appropriate volume loss. There is nonspecific, confluent hypoattenuation in the deep cerebral white matter, likely microvascular ischemic changes. There is a small chronic cortical infarct in the paramedian superior right parietal lobe. There is no compelling evidence of acute transcortical infarction at this time. MRI is more sensitive in detecting acute infarctions. There is calcific atherosclerosis along bilateral internal carotid artery siphons. The calvarium is intact. The visualized paranasal sinuses and mastoid air cells are clear. Impression: 1. No evidence of acute intracranial hemorrhage. No focal extra-axial collection and no definite mass effects. 2. Generalized, age appropriate volume loss with mild microvascular ischemic changes. Small chronic superior right parietal infarct. CXR 06/11/17: A single AP view the chest reveals clear lungs, degenerative changes, normal aorta and prominent right hilum. There is a large heart. The angles are sharp and the soft tissues are intact. There is no sign of infiltrate or failure. Impression: Degenerative changes. Large heart. No acute chest pathology. No comparison studies. Minutes to complete discharge: 45 Discharge Summary Reason For Visit: HYPERAMMONEMIA,ALTERED MENTAL STATUS Current Active Problems Acute alcohol intoxication (Acute) Alcohol dependence with uncomplicated withdrawal (Acute) Altered mental status (Acute) Hepatic encephalopathy (Acute) Hyperammonemia (Acute) Nicotine dependence (Acute) Condition: Stable - Instructions Diet, Activity, Other Instructions: You were admitted to the hospital for alcohol detox. Recommendations/Medications: -Continue taking your regular home medications, including Thiamine 100mg daily for now. You should also consider taking B-complex vitamin. Discuss this with your primary care physician. -You can make appointment for out-patient rehab at [facility] ([phone]) located at [address] [place] [address]. Tell them you had been seen by Dr. Cruz at [facility]. Follow-ups: Please see your primary care physician within 1 week for post-hospital evalution. Please see an outside salesman for your chronic rash. Follow up with your account solutions analyst as well. Please return to the Emergency Department if you have new, worsening, or concerning symptoms. Referrals: Macario Sanchez [Primary Care Provider] - 1 Week Disposition: HOME - Home Medications Comprehensive Discharge Medication List: Ambulatory Orders Advair 500Mcg/50Mcg - 1 inh As needed PRN 06/12/17 Atorvastatin Calcium 40 mg PO DAILY 06/12/17 Clopidogrel Bisulfate [Plavix] 75 mg PO DAILY 06/12/17 Diphenhydramine HCl [Benadryl -] 25 mg PO DAILY 06/12/17 Hydrochlorothiazide 12.5 mg PO DAILY 06/12/17 Losartan Potassium 50 mg PO DAILY 06/12/17 Diltiazem HCl [Diltiazem 24Hr ER] 120 mg PO DAILY 06/13/17 Fluoxetine HCl 40 mg PO DAILY 06/13/17 Metoprolol Tartrate 25 mg PO 06/13/17 This patient is new to me today: No Emergency Visit: No Critical Care patient: No - Discharge Referral Referred to [facility] No
== END 2017-06-15 10:42 | disposition home or self-care (01) | DRG 775 ==
LOC: JER 13:56 → JERBED 20:00 → J5S 22:35 → OBSVTOIN 06-12 09:29
PROVIDERS: ADMIT Internal Medicine; ATTEND Internal Medicine
DX: F10.230 Alcohol dependence with withdrawal, uncomplicated (principal); E72.4 Disorders of ornithine metabolism; I10 Essential (primary) hypertension; E78.5 Hyperlipidemia, unspecified; J45.909 Unspecified asthma, uncomplicated; F32.89 Other specified depressive episodes; F43.10 Post-traumatic stress disorder, unspecified; F41.8 Other specified anxiety disorders; G40.89 Other seizures; E87.0 Hyperosmolality and hypernatremia; K72.90 Hepatic failure, unspecified without coma; F17.200 Nicotine dependence, unspecified, uncomplicated; Z86.73 Personal history of transient ischemic attack (TIA), and cerebral infarction without residual deficits
CPT/HCPCS: 36415; 70450-TC; 71010-TC; 80053; 80307; 82140; 82550; 82553; 83735; 84100; 84484; 85025; 85027; 85610; 93005; 93010; 99284-25; G0378; J1644

== ENCOUNTER 2021-08-10 15:42 | Observation (INO) | payer OTHER ==
[2021-08-10 15:50] VITALS: BMI 29.7
[2021-08-10] MEDS ORDERED: MAG HYDROX/AL HYDROX/SIMETH 30 ML UNIT-DOSE CUP PO ONE ×2 (16:53→21:30)
[2021-08-10] MEDS ORDERED: FAMOTIDINE 20 MG/50 ML IVPB 20 MG/50 ML MG IVPB ONE ×4 (16:53→21:41)
[2021-08-10] MEDS ORDERED: ACETAMINOPHEN 1000 MG/100 ML BAG IVPB ONE ×2 (16:55→21:38)
[2021-08-10 17:08] LABS: BASO % 0.7 % (0-2.0); EOS % 1.3 % (0-4.5); HEMATOCRIT 40.5 % (32.4-45.2); LYMPH % 33.7 % (8-40); MCH 31.1 pg (25.7-33.7); MCHC 34.4 g/dl (32.0-36.0); MEAN CELL VOLUME 90.2 fl (80-96); MEAN PLT VOLUME 8.1 fl (7.5-11.1); MONO % 9.8 % (3.8-10.2); NEUT % 54.5 % (42.8-82.8); PLATELET COUNT 187 10^3/uL (134-434); RBC 4.49 M/mm3 (3.60-5.2); RDW 13.5 % (11.6-15.6); WHITE BLOOD COUNT 5.8 K/mm3 (4.0-10.0)
[2021-08-10] MEDS ORDERED: MAG HYDROX/AL HYDROX/SIMETH 30 ML UNIT-DOSE CUP ONE ×2 (17:10→21:40)
[2021-08-10] MEDS ORDERED: ACETAMINOPHEN INJECTION 100 ML IVPB ONE ×2 (17:10→21:40)
[2021-08-10 17:19] LABS: PH,URINE 6.5 (5.0-8.0); URINE APPEARANCE CLEAR; URINE BILIRUBIN NEGATIVE (NEGATIVE); URINE COLOR YELLOW; URINE GLUCOSE (UA) NEGATIVE (NEGATIVE); URINE KETONE NEGATIVE (NEGATIVE); URINE LEUK ESTERASE NEGATIVE (NEGATIVE); URINE NITRITE NEGATIVE (NEGATIVE); URINE PROTEIN NEGATIVE (NEGATIVE); URINE UROBILINOGEN 0.2 mg/dL (0.2-1.0)
[2021-08-10 17:40] LABS: ALBUMIN 4.1 g/dl (3.4-5.0); BLOOD UREA NITROGEN 11.6 mg/dL (7-18); CALCIUM 9.9 mg/dL (8.5-10.1)
[2021-08-10 17:45] LABS: BILIRUBIN,TOTAL 0.4 mg/dL (0.2-1); TOT PROT 7.9 g/dl (6.4-8.2)
[2021-08-10 17:55] LABS: INR 1.01 (0.83-1.09); PROTHROMBIN TIME (PATIENT) 11.6 SEC (9.7-13.0)
[2021-08-10 17:58] LABS: ACTIVATED PTT 30.8 SECONDS (25.2-36.5)
[2021-08-10] MEDS ORDERED: LACTATED RINGERS SOLUTION 1000 ML INFUS.BAG IV ONE (21:29)
[2021-08-10] MEDS ORDERED: METOCLOPRAMIDE HCL INJECTION 10 MG/2 ML VIAL IVPB ONE (21:29)
[2021-08-10] MEDS ORDERED: METOCLOPRAMIDE HCL INJECTION 10 MG/2 ML VIAL ONE (21:40)
[2021-08-10] MEDS ORDERED: ASPIRIN 81 MG CHEWABLE TABLETS PO ONE (22:34)
[2021-08-10] MEDS ORDERED: HEPARIN INFUSION - 25,000 UNITS/500 ML INFUS.BAG IVPB ONE (22:56)
[2021-08-10] MEDS ORDERED: ASPIRIN 81 MG CHEWABLE TABLETS ONE (22:56)
[2021-08-10] MEDS ORDERED: CLOPIDOGREL BISULFATE 300 MG TABLET PO ONE (22:56)
[2021-08-10] MEDS ORDERED: CLOPIDOGREL BISULFATE 300 MG TABLET ONE (22:56)
[2021-08-10] MEDS ORDERED: HEPARIN - 25,000 UNIT in SODIUM CHLORIDE 495 ML IV SCH (23:00)
[2021-08-10] MEDS ORDERED: ATORVASTATIN CA 80 MG TABLET (FP) PO ONE (23:09)
[2021-08-11 00:13] VITALS: TEMP 98.6
[2021-08-11 00:14] VITALS: BP 155/87; PULSE 76
== END 2021-08-10 23:34 | disposition short-term general hospital (02) ==
LOC: JER 15:42 → JERBED 21:28
PROVIDERS: ADMIT Hospitalist; ATTEND Hospitalist
PROC: 3E033NZ Introduction of Analgesics, Hypnotics, Sedatives into Peripheral Vein, Percutaneous Approach (ICD-10-PCS; principal; 2021-08-10)
PROC: 3E033GC Introduction of Other Therapeutic Substance into Peripheral Vein, Percutaneous Approach (ICD-10-PCS; 2021-08-10)
PROC: 3E0337Z Introduction of Electrolytic and Water Balance Substance into Peripheral Vein, Percutaneous Approach (ICD-10-PCS; 2021-08-10)
DX: F17.210 Nicotine dependence, cigarettes, uncomplicated (principal); J45.909 Unspecified asthma, uncomplicated; Z86.73 Personal history of transient ischemic attack (TIA), and cerebral infarction without residual deficits; Z96.659 Presence of unspecified artificial knee joint; E78.00 Pure hypercholesterolemia, unspecified; I10 Essential (primary) hypertension; R07.9 Chest pain, unspecified; N05.9 Unspecified nephritic syndrome with unspecified morphologic changes
CPT/HCPCS: 36415; 71045-TC-FY; 71275-TC; 74174-TC; 80053; 81003; 82550; 84484; 85025; 85610; 85730; 86850; 86900; 86901; 93005; 93010; 96365; 96366; 96367; 96375; 96376; 99291; G0378; J1644; Q9967

== ENCOUNTER 2023-09-27 11:56 | Emergency (ER) | payer OTHER ==
[2023-09-27 12:03] VITALS: TEMP 98.1; BMI 29.7
[2023-09-27] MEDS ORDERED: ALBUTEROL SO4 2.5/IPRATROPIUM 0.5 INH SOL 3 ML VIAL.NEB. NEB ONE (13:07)
[2023-09-27] MEDS ORDERED: ACETAMINOPHEN 325 MG TABLET (FP) ONE (13:07)
[2023-09-27] MEDS: ALBUTEROL SO4 2.5/IPRATROPIUM 0.5 INH SOL 3 ML VIAL.NEB. NEB SCH (13:12)
[2023-09-27] MEDS: ACETAMINOPHEN 500 MG TABLET (FP) PO ONE (13:12)
[2023-09-27 13:19] LABS: BASO % 0.7 % (0-2.0); HEMATOCRIT 41.9 % (32.4-45.2); HEMOGLOBIN 13.9 GM/dL (10.7-15.3); LYMPH % 9.9 % (8-40); MCH 30.6 pg (25.7-33.7); MCHC 33.2 g/dl (32.0-36.0); MEAN CELL VOLUME 92.2 fl (80-96); MEAN PLT VOLUME 8.7 fl (7.5-11.1); MONO % 2.6 % (3.8-10.2); NEUT % 86.8 % (42.8-82.8); PLATELET COUNT 231 10^3/uL (134-434); RBC 4.55 M/mm3 (3.60-5.2); RDW 13.1 % (11.6-15.6); WHITE BLOOD COUNT 8.6 K/mm3 (4.0-10.0)
[2023-09-27 13:28] LABS: INR 1.01 (0.83-1.09); PROTHROMBIN TIME (PATIENT) 11.7 SEC (9.7-13.0)
[2023-09-27 13:30] LABS: ACTIVATED PTT 30.4 SECONDS (25.2-36.5)
[2023-09-27 13:42] LABS: CALCIUM 9.3 mg/dL (8.5-10.1)
[2023-09-27 13:43] LABS: ALBUMIN 3.9 g/dl (3.4-5.0); BLOOD UREA NITROGEN 13.6 mg/dL (7-18)
[2023-09-27] MEDS: DEXAMETHASONE SOD PHOSPHATE 10 MG/1 ML VIAL IVPUSH ONE (13:43)
[2023-09-27 13:46] LABS: CREATININE 0.9 mg/dL (0.55-1.3)
[2023-09-27 13:47] LABS: BILIRUBIN,TOTAL 0.5 mg/dL (0.2-1); TOT PROT 8.2 g/dl (6.4-8.2)
[2023-09-27] MEDS ORDERED: guaiFENesin/CODEINE 10 ML UNIT-DOSE CUPS ONE (15:05)
[2023-09-27] MEDS: guaiFENesin/CODEINE 10 ML UNIT-DOSE CUPS PO ONE (15:19)
[2023-09-27 18:08] VITALS: BP 127/92; PULSE 80; RESP 22
== END 2023-09-27 18:08 | disposition home or self-care (01) ==
LOC: JER 11:56
PROC: 3E0F7GC Introduction of Other Therapeutic Substance into Respiratory Tract, Via Natural or Artificial Opening (ICD-10-PCS; principal; 2023-09-27)
DX: J45.901 Unspecified asthma with (acute) exacerbation (principal); R05.9 Cough, unspecified; R07.89 Other chest pain; M79.10 Myalgia, unspecified site; R50.9 Fever, unspecified; R10.13 Epigastric pain; Z20.822 Contact with and (suspected) exposure to COVID-19
CPT/HCPCS: 0241U-QW; 36415; 71046-TC-FY; 80053; 84484; 85025; 85610; 85730; 93005; 93010; 99285-25

== ENCOUNTER 2024-07-11 17:12 | Emergency (ER) | payer OTHER ==
[2024-07-11 17:32] VITALS: BP 123/66; PULSE 73; RESP 16; TEMP 99.2; BMI 30.4
[2024-07-11] MEDS ORDERED: ALBUTEROL SO4 2.5/IPRATROPIUM 0.5 INH SOL 3 ML VIAL.NEB. NEB ONE (19:00)
[2024-07-11] MEDS ORDERED: guaiFENesin/D-METHORPHAN HB 10 ML UNIT-DOSE CUPS ONE (19:01)
[2024-07-11] MEDS: guaiFENesin/D-METHORPHAN HB 10 ML UNIT-DOSE CUPS PO ONE (19:02)
[2024-07-11 19:03] LABS: BASO % 0.9 % (0-2.0); HEMATOCRIT 39.5 % (32.4-45.2); HEMOGLOBIN 13.2 GM/dL (10.7-15.3); LYMPH % 29.5 % (8-40); MCHC 33.5 g/dl (32.0-36.0); MEAN CELL VOLUME 92.7 fl (80-96); MEAN PLT VOLUME 8.4 fl (7.5-11.1); MONO % 10.9 % (3.8-10.2); NEUT % 56.7 % (42.8-82.8); PLATELET COUNT 245 10^3/uL (134-434); RBC 4.26 M/mm3 (3.60-5.2); RDW 13.9 % (11.6-15.6); WHITE BLOOD COUNT 7.3 K/mm3 (4.0-10.0)
[2024-07-11] MEDS: ALBUTEROL SO4 2.5/IPRATROPIUM 0.5 INH SOL 3 ML VIAL.NEB. NEB ONE (19:10)
[2024-07-11 19:27] LABS: POTASSIUM 4.2 mmol/L (3.5-5.1)
[2024-07-11 19:29] LABS: BLOOD UREA NITROGEN 8.4 mg/dL (7-18)
[2024-07-11 19:32] LABS: CREATININE 0.9 mg/dL (0.55-1.3)
[2024-07-11 19:36] LABS: N-TERMINAL BNP 203.9 pg/ml (5-125)
[2024-07-11] MEDS ORDERED: AZITHROMYCIN 500 MG TABLET ONE (19:52)
[2024-07-11] MEDS: AZITHROMYCIN 250 MG TABLET PO ONE (19:54)
== END 2024-07-11 20:08 | disposition home or self-care (01) ==
LOC: JER 17:12
PROC: 3E0F7GC Introduction of Other Therapeutic Substance into Respiratory Tract, Via Natural or Artificial Opening (ICD-10-PCS; principal; 2024-07-11)
DX: J40 Bronchitis, not specified as acute or chronic (principal); J18.9 Pneumonia, unspecified organism; R05.9 Cough, unspecified; R06.02 Shortness of breath; R07.9 Chest pain, unspecified; Z20.822 Contact with and (suspected) exposure to COVID-19
CPT/HCPCS: 0241U-QW; 36415; 71046-TC-FY; 80048; 83880; 84484; 85025; 93005; 93010; 99285-25